=== PATIENT | female | born 1990 | race Caucasian/White ===

== ENCOUNTER 2021-12-29 16:51 | Emergency (ER) | payer OTHER, BC ==
[2021-12-29 19:17] VITALS: BP 121/74; PULSE 70
== END 2021-12-29 19:05 | disposition home or self-care (01) ==
LOC: MW.ED 16:51
DX: S13.4XXA Sprain of ligaments of cervical spine, initial encounter (principal); V89.2XXA Person injured in unspecified motor-vehicle accident, traffic, initial encounter
CPT/HCPCS: 72125; 72125-26; 99283-25